=== PATIENT | female | born 2000 | race Caucasian/White ===

== ENCOUNTER 2024-05-14 04:33 | Emergency (ER) | payer BC, SELFPAY ==
[2024-05-14 04:57] VITALS: BP 114/76
[2024-05-14 05:17] LABS: % Basophils 0.2 % (0-2); % Immature Granulocytes 0.3 % (0-0.5); % Lymphocytes 1.4 % (20.5-51.1); % Monocytes 3.1 % (1.7-9.3); Absolute Lymphocytes 0.1 10^3/uL (1.2-3.4); Absolute Monocytes 0.3 10^3/uL (0.1-0.6); Hematocrit 37.6 % (37.0-47.0); Hemoglobin 12.7 g/dL (12.0-16.0); Mean Corp Hgb Conc. 33.8 g/dL (33.0-37.0); Mean Corpuscular Hgb 33.2 pg (27.0-31.0); Mean Corpuscular Volume 98.4 fL (81.0-99.0); Nucleated Red Blood Cells % 0 %; Platelet Count 218 10^3/uL (130-400); Red Blood Cell Count 3.82 10^6/uL (4.20-5.40); Red Cell Dist. Width 12.9 % (11.5-14.5); Urine Albumin Negative (Neg - Trace); Urine Bilirubin Negative (Negative); Urine Character Clear (Clear); Urine Color Yellow; Urine Glucose Negative (Negative); Urine Ketone 3+ (Negative); Urine Leukocyte 1+ (Negative); Urine Nitrite Negative (Negative); Urine Occult Blood Negative (Negative); Urine Urobilinogen Negative (Neg - 1+); White Blood Cell Count 9.4 10^3/uL (4.8-10.8)
[2024-05-14 05:38] LABS: HCG, Serum Qualitative Screen Negative
[2024-05-14 05:58] LABS: ALT (SGPT) 21 U/L (0-35); AST (SGOT) 28 U/L (14-36); Albumin 5.1 g/dl (3.5-5.0); Alkaline Phosphatase 56 U/L (38-126); Blood Urea Nitrogen 14 mg/dl (7-17); Calcium 9.7 mg/dl (8.4-10.2); Carbon Dioxide 24 mmol/L (22-30); Chloride 101 mmol/L (98-107); Glucose 141 mg/dl (70-99); Potassium 4.4 mmol/L (3.5-5.1); Sodium 138 mmol/L (135-145); Total Bilirubin 1.2 mg/dl (0.2-1.3); Total Protein 7.2 g/dl (6.3-8.2); eGFR > 60.00
[2024-05-14 06:04] LABS: Urine Bacteria Moderate (Negative)
[2024-05-14] MEDS: ZOFRAN ODT (ORALLY DISINTEGRATING) 4 MG PO (07:54)
--- NOTE | 2024-05-14 08:46 | ED.GENMED ---
History of Present Illness
General
Chief Complaint: Abdominal Pain
Time Seen by Provider: 05/14/24 07:47
History of Present Illness
History of Present Illness:
23-year-old female presents to the emergency department for evaluation of nausea and vomiting beginning this morning. Denies any abdominal pain. Able to tolerate small sips of fluids. No fevers or chills.
Past History
Past History
ED Past Medical History: None
ED Past Surgical History: None
Social History
Tobacco: Non-smoker
Alcohol: None
Drug: None
Personal: Single
Living: with family
Employment: Student
Family History
Family History: Other (Mother with appendicitis)
Review of Systems
Review of Systems
Allergies reviewed?: Yes
All Other Systems: ROS reviewed and negative except as documented in HPI and ROS
Phy Exam
Physical Exam
Physical Exam:
GEN: Well appearing, NAD, WDWN
HEENT: Oral mucosa moist, no scleral icterus
Cardiac: Regular rate
Lung: No respiratory distress, no tachypnea
MSK: No gross deformity or injuries
Skin: Good color, no pallor or jaundice, no rashes
Neuro: AO x3, moves all extremities freely
Psych: Calm, cooperative
Course
Orders/Labs/Results
Orders:
Orders
05/14/24 05:00
Test Result ONCE
05/14/24 05:03
Complete Blood Count/With Diff Urgent
Urinalysis Reflex To Culture Urgent
Date Specimen was Collected: 05/14/24
Time Specimen was Collected: 05:00
Urine Microscopic Reflex Cult Urgent
Urine Culture Urgent
RIGOBERTO Source: U
Specimen Description:
Date Specimen was Collected: 05/14/24
Time Specimen was Collected: 05:00
05/14/24 05:04
Comprehensive Metabolic Panel Urgent
HCG, Serum Qualitative Screen Urgent
05/14/24 07:48
Ondansetron Orally Disint [Zofran Odt (Orally Disintegrating)] 4 mg PO NOW STA
05/14/24 07:52
Ondansetron Orally Disint [Zofran Odt (Orally Disintegrating)] 4 mg .ROUTE .STK-MED ONE
Abnormal Lab Results
05/14/24 05/14/24
05:03 05:04
RBC 3.82 L 10^6/uL
(4.20-5.40)
MCH 33.2 H pg
(27.0-31.0)
Absolute Neuts (auto) 9.0 H 10^3/uL
(1.4-6.5)
Absolute Lymphs (auto) 0.1 L 10^3/uL
(1.2-3.4)
Neutrophils % 95.0 H %
(42.2-75.2)
Lymphocytes % 1.4 L %
(20.5-51.1)
Glucose 141 H mg/dl
(70-99)
Albumin 5.1 H g/dl
(3.5-5.0)
Urine Ketones 3+ A
(Negative)
Leukocyte Esterase Rfl 1+ A
(Negative)
Urine RBC 7-10 A /HPF
(0-2)
Urine Bacteria (Reflex) Moderate A
(Negative)
05/14/24 05:03
05/14/24 05:04
Vital Signs
Initial and Last Documented VS:
Initial Vital Signs
Temp Pulse Resp BP Pulse Ox
98.8 F 103 16 114/76 100
05/14/24 04:57 05/14/24 04:57 05/14/24 04:57 05/14/24 04:57 05/14/24 04:57
Last Documented Vital Signs
Temp Pulse Resp BP Pulse Ox
98.8 F 103 16 114/76 100
05/14/24 04:57 05/14/24 04:57 05/14/24 04:57 05/14/24 04:57 05/14/24 04:57
MDM/Problems Addressed
MDM/Problems Addressed:
Patient given p.o. Zofran after labs resulted and able to tolerate p.o. fluids without difficulty. Likely self-limited viral syndrome, discussed supportive care and return parameters, no indication for imaging
*Critical Care Note
Total Time (30-74mins, 75-104mins- exclusive of procedures): Not Applicable
ED Attending Note
-
Portions of this chart may have been created with voice recognition software.� Occasional wrong word or��sound alike� substitutions may have occurred due to the inherent limitations of voice recognition software.
Discharge Plan
Departure
Patient Disposition: Home (Routine Discharge)
Date of Disposition: 05/14/24
Time of Disposition: 08:46
Patient with high blood pressure during this ER visit?: No
Discharge Problem:
Gastroenteritis
Instructions: Nausea and Vomiting, Adult (DC)
Prescriptions:
New
ondansetron 4 mg tablet,disintegrating
4 mg PO TIDPRN PRN (Reason: nausea/vomiting) Qty: 20 0RF
No Action
oxybutynin chloride 5 mg tablet
5 mg PO TID PRN (Reason: bladder spasms) Qty: 63 0RF
Interventions
Interventions:
*General Assessment Last Done: 05/14/24 04:57
*ED COVID-19 Vaccine History Last Done: 05/14/24 04:57
*Nursing Disposition Last Done: 05/14/24 09:06
Discharge Date and Time
Discharge Date/Time: 05/14/24 09:07
Print Language: GREEK
== END 2024-05-14 09:07 | disposition home or self-care (01) ==
LOC: EMR 04:33
PROVIDERS: Student in an Organized Health Care Education/Training Program; EMERGENCY PHYSICIAN Emergency Medicine; FAMILY PHYSICIAN Internal Medicine
DX: K52.9 Noninfective gastroenteritis and colitis, unspecified (principal)
CPT/HCPCS: 99283; 80053; 81003; 81015; 84703; 85025; 87086